=== PATIENT | female | born 1970 | race Caucasian/White ===

== ENCOUNTER 2023-11-13 17:14 | Outpatient (CLI) | payer OTHER, SELFPAY ==
--- OUTSIDE RECORDS SUMMARY | 2023-11-13 17:18 | XMS_ITS | Clinical Summary ---
Author Name Unknown Organization [email or web address] Address [place], [place] [address] Care Team Providers Care Surgery Assistant Name Role Phone Ayan Gandhi MD Primary Care Provider + Allergies No known active allergies Medications Medication Sig Dispensed Refills Start Date End Date Status multivitamin (MVI) tablet Take 1 tablet by mouth once daily. 0 02/18/2010 Active LORazepam (ATIVAN) 0.5 mg tabIndications:Gener alized anxiety disorder Take 1 tablet by mouth every 6 hours if needed for Anxiety or Muscle Spasm. 20 tablet 0 03/02/2017 Active escitalopram oxalate (LEXAPRO) 5 mg tabletIndications:Ge neralized anxiety disorder Take 1 tablet by mouth once daily. 90 tablet 3 01/16/2018 Active lisinopril-hydrochlo rothiazide (10-12.5 mg) tablet (PRINZIDE; ZESTORETIC) Take 1 Tablet by mouth once daily. 0 05/05/2021 Active losartan (COZAAR) 50 mg tablet Take 50 mg by mouth. 0 10/25/2019 Active metoprolol succinate SR (TOPROL XL) 200 mg Sustained-Release tablet Take 200 mg by mouth once daily. 0 05/05/2021 Active hydrocortisone (ANUSOL-HC) 2.5 % rectal creamIndications:Rec katrin irritation Apply topically to affected area(s) 2 times daily. 1 Tube 0 06/06/2021 Active Active Problems Problem Noted Date Diagnosed Date Anxiety 10/30/2013 Temporomandibular joint disorders, unspecified 0 07/25/2007 Generalized hyperhidrosis 07/25/2007 Resolved Problems Problem Noted Date Diagnosed Date Resolved Date Temporomandibular joint diso rders, unspecified 08/27/2007 02/18/2010 Immunizations Name Administration Dates Next Due AMB Influenza, IIV3 (Age >=3 years)(Flu Clinic Only) 08/15/2011,09/10/2008 AMB Influenza, IIV4 PF (=>6 mos Flulaval,Fluzone Fluarix)(Flu Clinic Only) 08/25/2016,08/07/2014 Influenza A (H1N1), Inactiva jose ramon (Age >=3 Years) 11/20/2009 Influenza, IIV3 (Age >=3 years) 08/24/2015,08/16,08/27/2007 Influenza, IIV4 08/08/2017 Td (Age >=7 Years) 03/15/1997 Tdap 02/18/2010 Family History Medical History Relation Name Comments Good Health Father Other Mother Trauma Hypertension Sister Cancer-breast No Family History Relation Name Status Comments Father Alive Mother (Age 51) Sister Social History Tobacco Use Types Packs/Day Years Used Date Smoking Tobacco: Former Cigarettes 1 10 0 11/06/1981 - 11/06/1991 Smokeless Tobacco: Never Alcohol Use Standard Drinks/Week Comments Yes 0 (1 standard drink = 0.6 oz pur e alcohol) Socially PHQ-2 Answer Date Recorded PHQ-2 Score 0 01/05/2019 Sex and Gender Information Value Date Recorded Sex Assigned at Not on file Gender Identity Not on file Sexual Orientation Not on file Obstetrics History Para Term AB IAB SAB Ectopic Multiple Livin g Live Births 2 2 2 0 0 0 0 0 2 Date Outcome GA Total Labor Labor/2nd/3rd Weight Sex Delivery Anes PTL Domitila A1 A5 Name Cl in Term Term Comments secondary to POP wi th repeat and BTL Last Filed Vital Signs Vital Sign Reading Time Taken Comments Blood Pressure 160/90 07/26/2022 2:31 PM CDT Pulse 103 07/26/2022 1:48 PM CDT Temperature 38.1 ??C (100.6 ??F) 07/26/2022 1:48 PM C DT Respiratory Rate 16 07/26/2022 1:48 PM CDT Oxygen Saturation 98% 07/26/2022 1:48 PM CDT Inhaled Oxygen Concentration - - Weight 74.8 kg (165 lb) 07/26/2022 1:48 PM CDT Height 164.5 cm (5' 4.75) 01/16/2018 8:36 AM CD T Body Mass Index 27.67 01/16/2018 8:36 AM CDT Plan of Treatment Health Maintenance Due Date Last Done Comments COVID-19 vaccine series (#1) 1968 HIV for age 15-65 1983 Hepatitis C screening for age 18-79 1986 Colonoscopy through age 75 2013 Lipids for age 45-75 2013 07/23/2007 Zoster (shingles) series for age 50+ (1 of 2) 2018 BMI (ht and wt on same day) for age 18+ 01/16/2019 01/16/2018, 07/17/2017, 01/25/2017 Depression screening for age 12+ 01/16/2019 01/16/2018, 01/15/2018, 07/17/2017, Additional history exists Tetanus booster 02/19/2020 02/18/2010, 03/15/1997 Mammogram for age 45-75 06/16/2023 06/16/20, 09/26/2019, 08/15/2018, Additional history exists Influenza for age 50-64 07/07/2023 08/08/20, 08/25/2016, 08/24/2015, Additional history exists Tdap Completed 02/18/2010 Pneumococcal series for age 6-64 Aged Out No longer eligible based on patient's age to complete this topic Care Teams Surgery Assistant Relationship Specialty Start Date End Date Ayan Gandhi MD [address] [place], [place] [id number] PCP - General Family Practice 07/17/17
== END 2023-11-13 17:15 | disposition home or self-care (01) ==
PROVIDERS: PCP Family Medicine; Visit Provider Family Medicine
DX: I10 Essential (primary) hypertension (principal); M25.50 Pain in unspecified joint
CPT/HCPCS: 80048; 86039; 86140; 86431

== ENCOUNTER 2025-01-17 07:26 | Outpatient (CLI) | payer OTHER, SELFPAY | END 2025-01-17 07:27 | disposition home or self-care (01) | PROVIDERS: PCP Family Medicine; Visit Provider Family Medicine | DX: I10 Essential (primary) hypertension (principal) | CPT/HCPCS: 80048; 80061 ==